=== PATIENT | male | born 1960 | race Caucasian/White ===

== ENCOUNTER → 2017-10-06 | Outpatient (CLI) | payer OTHER ==
--- NOTE | 2017-10-06 11:54 | XR ---
EXAMINATION TYPE: XR chest 2V DATE OF EXAM: 10/06/2017 COMPARISON: 10/02/2017 HISTORY: 57-year-old male history of bilateral rib fractures from crushing injury, pain, assess lung contusion TECHNIQUE: Frontal and lateral views FINDINGS: Known right-sided rib fractures were better demonstrated on CT. Very minimal hazy density in the right upper lobe is similar to 10/02/2017. No new consolidation. Hea rt is normal size. Mild elongation of the thoracic aorta. There is a small left pleural effusion. No pneumothorax. IMPRESSION: 1. Multiple known right-sided rib fractures better seen on CT. 2. Minimal hazy right upper lobe density, similar to 10/02/2017 could represent some minimal residual pulmonary contusion. No progressive lung contusion or pneumothorax. 3. Continued small left pleural effusion.
== END | disposition home or self-care (01) ==
LOC: RADXRMAIN 11:30
PROVIDERS: ATTEND Emergency Medicine
DX: S22.41XA Multiple fractures of ribs, right side, initial encounter for closed fracture (principal); J90 Pleural effusion, not elsewhere classified
CPT/HCPCS: 71020

== ENCOUNTER 2017-11-16 15:23 | Emergency (ER) | payer OTHER ==
[2017-11-16 15:35] VITALS: RESP 18
--- NOTE | 2017-11-16 16:51 | XR ---
EXAMINATION TYPE: XR ribs bilat w pa chest xray DATE OF EXAM: 11/16/2017 CLINICAL HISTORY: Crushing injury October 06 with persistent pain. TECHNIQUE: Single frontal view of the chest is obtained. A frontal and oblique images of bilateral ri bs are acquired. COMPARISON: Prior chest x-ray October 06, 2017. Prior CT chest abdomen pelvis September 28, 2017 FINDINGS: There is chronic emphysematous change without suspicious new focal air space opacity, pleu ral effusion, or pneumothorax seen. The cardiac silhouette size is within normal limits. The osseo us structures are intact. Dedicated images of bilateral ribs show no new acute displaced rib fractures. Nondisplaced fractures are seen better on prior CT. Some callus formation right mid lateral fractures is now present third t hrough seventh ribs. Callus formation anterior left upper rib fractures is noted. IMPRESSION: 1. No acute cardiopulmonary process. 2. Bilateral subacute nondisplaced rib fractures noted on prior CT with some interval callus formatio n. No new displacement identified.
--- NOTE | 2017-11-16 16:52 | XR ---
EXAMINATION TYPE: XR sternum DATE OF EXAM: 11/16/2017 COMPARISON: CT chest abdomen and pelvis September 28, 2017. HISTORY: Persistent sternal pain after crushing injury September 28 TECHNIQUE: A frontal and lateral images of the sternum are acquired. FINDINGS: No acute displaced sternal fracture is identified. Anterior left upper rib fractures noted seen better on prior CT. Overlying soft tissue is unremarkable. IMPRESSION: As above.
--- NOTE | 2017-11-16 17:10 | ED ---
Recheck HPI - General Chief Complaint: Recheck/Abnormal Lab/Rx Stated Complaint: Rib Pain Time Seen by Provider: 11/16/17 16:12 Source: patient, RN notes reviewed Mode of arrival: ambulatory Limitations: no limitations - History of Present Illness Initial Comments: This is a 57-year-old male who presents to the emergency department with chief complaint of rib pain. Patient states that he sustained multiple rib fractures on September 28. He states that over the last 4 days he's noticed a "deformity. " He states that he's noticed a bulge in the right side of his chest. He states that his pain has increased over the last 4 days. He states he has been taking Motrin at home for pain. Denies any chest pain or shortness of breath. Denies fever or chills, abdominal pain, nausea or vomiting, diarrhea or constipation. - Related Data Home Medications Medication Instructions Recorded Confirmed Multivit-Min/FA/Lycopen/Lutein 1 tab PO DAILY 11/16/17 11/16/17 [Centrum Silver Men Tablet] Previous Rx's Medication Instructions Recorded Diazepam [Valium] 5 mg PO TID PRN #20 tab 10/02/17 Allergies Allergy/AdvReac Type Severity Reaction Status Date / Time No Known Allergies Allergy Verified 11/16/17 16:24 Review of Systems ROS Statement: Those systems with pertinent positive or pertinent negative responses have been documented in the HPI. ROS Other: All systems not noted in ROS Statement are negative. Past Medical History Past Medical History: No Reported History Additional Past Medical History / Comment(s): Chronic sinusitis. History of Any Multi-Drug Resistant Organisms: None Reported Past Surgical History: Appendectomy Past Anesthesia/Blood Transfusion Reactions: No Reported Reaction Past Psychological History: No Psychological Hx Reported Smoking Status: Current every day smoker Past Alcohol Use History: None Reported Past Drug Use History: None Reported General Exam - General Exam Comments Initial Comments: General: Awake and alert, well-developed; in no apparent distress. HEENT: Head atraumatic, normocephalic. Pupils are equal, round and reactive to light. Extraocular movements intact. Neck: Supple. Normal ROM. Cardiovascular: Regular rate and rhythm. No murmurs, rubs or gallops. A prominence of right upper rib is palpated. This area is tender. Respiratory: Lungs clear to auscultation bilaterally. No wheezes, rales or rhonchi. Normal respiratory effort with no use of accessory muscles. Musculoskeletal: Normal ROM, no tenderness bilateral upper and lower extremities. Ambulating normally. Skin: [place], warm and dry without rashes or lesions. Neurological: Alert and oriented x3. CN II-XII grossly intact. Speech is fluent and answers are appropriate. No focal neuro deficits. Psychiatric: Normal mood and affect. No overt signs of depression or anxiety noted. Limitations: no limitations Course Vital Signs 11/16/17 15:31 Temperature 97.7 F Pulse Rate 104 H Respiratory 18 Rate Blood Pressure 146/82 O2 Sat by Pulse 98 Oximetry Medical Decision Making - Medical Decision Making This is a 57-year-old male with history of multiple rib fractures who presents to the emergency department with chief complaint of rib pain. Patient states that he's noticed a deformity of his right upper chest and increase in pain over the past 4 days. Chest x-ray, ribs and sternum were obtained. They revealed no acute fractures. Subacute fractures from previous have callus formation. Previous rib fractures are non-displaced and appear to be healing. Chest x-ray revealed no pneumothorax, pleural effusion or pneumonia. Patient is in no acute distress and will be discharged home. Recommended following up with his primary care provider. Patient is in agreement with plan and voices understanding. All questions were answered. - Radiology Data Radiology results: report reviewed Sternum x-ray findings: No acute displaced sternal fracture is identified. Anterior left upper rib fractures noted seen better on prior CT. Overlying soft tissues unremarkable. Impression: As above. X-ray bilateral ribs with PA chest findings: There is chronic emphysematous changes are suspicious no focal airspace opacity, pleural effusion or pneumothorax seen. The cardiac silhouette size is within normal limits. The osseous structures are intact. Dedicated images of bilateral ribs show no acute displaced rib fractures. Nondisplaced fractures are seen better on prior CT. Some callus formation right mid lateral fractures is now present third through seventh ribs. Callus formation anterior left upper rib fractures is noted. Impression: 1. No acute cardiopulmonary process. 2. Bilateral subacute nondisplaced rib fractures noted on prior CT was some interval callus formation. No displacement identified. Disposition Clinical Impression: History of rib fracture Disposition: HOME SELF-CARE Condition: Good Instructions: Rib Fracture (ED) Additional Instructions: Please follow up with primary care provider within 1-2 days. Return to emergency department if symptoms should worsen or any concerns arise. Referrals: Ayaz Ricardo MD [Primary Care Provider] - 1-2 days Time of Disposition: 17:16
[2017-11-16 17:21] VITALS: BP 118/80; PULSE 110; TEMP 98.2
== END 2017-11-16 17:20 | disposition home or self-care (01) ==
LOC: EC 15:23
DX: R07.81 Pleurodynia (principal); Z87.81 Personal history of (healed) traumatic fracture; R22.2 Localized swelling, mass and lump, trunk; F17.200 Nicotine dependence, unspecified, uncomplicated; Z79.899 Other long term (current) drug therapy
CPT/HCPCS: 71111; 71120; 99283

== ENCOUNTER → 2017-12-16 | Outpatient (CLI) | payer OTHER ==
[2017-12-16 07:55] LABS: Basophils % (A) 0 %; Eosinophils # (A) 0.1 k/uL (0-0.7); Eosinophils % (A) 1 %; HCT 47.6 % (39.0-53.0); HGB 14.9 gm/dL (13.0-17.5); Lymphocytes # (A) 2.4 k/uL (1.0-4.8); Lymphocytes % (A) 30 %; MCH 28.4 pg (25.0-35.0); MCHC 31.3 g/dL (31.0-37.0); MCV 90.7 fL (80.0-100.0); Mean Platelet Volume 8.8; Monocytes # (A) 0.5 k/uL (0-1.0); Monocytes % (A) 6 %; Neutrophils # (A) 4.9 k/uL (1.3-7.7); Neutrophils % (A) 61 %; Platelet Count 210 k/uL (150-450); RBC 5.25 m/uL (4.30-5.90); RDW 13.4 % (11.5-15.5); WBC 8.1 k/uL (3.8-10.6)
[2017-12-16 08:08] LABS: ALT 28 U/L (21-72); AST 16 U/L (17-59); Albumin 4.2 g/dL (3.5-5.0); Alkaline Phosphatase 107 U/L (38-126); Anion Gap 9 mmol/L; Blood Urea Nitrogen 18 mg/dL (9-20); Calcium 9.7 mg/dL (8.4-10.2); Carbon Dioxide 26 mmol/L (22-30); Chloride 106 mmol/L (98-107); Cholesterol 183 mg/dL (<200); Creatine Kinase 74 U/L (55-170); Glucose 99 mg/dL (74-99); HDL Cholesterol 45 mg/dL (40-60); LDL Cholesterol,Calculated 95 mg/dL (0-99); Potassium 4.4 mmol/L (3.5-5.1); Sodium 141 mmol/L (137-145); Total Bilirubin 0.4 mg/dL (0.2-1.3); Total Protein 6.9 g/dL (6.3-8.2); Triglycerides 217 mg/dL (<150); Uric Acid 6.3 mg/dL (3.5-8.5)
--- NOTE | 2017-12-16 08:34 | XR ---
EXAMINATION TYPE: XR chest 2V DATE OF EXAM: 12/16/2017 COMPARISON: Prior chest x-ray 11/16/[address] 09/28/2017 HISTORY: Pain and COPD TECHNIQUE: Frontal and lateral views of the chest are obtained. FINDINGS: There is no focal air space opacity, pleural effusion, or pneumothorax seen. The cardiac silhouette size is within normal limits. Prominent lung volumes compatible with underlying emphysema. Patient is rotated. The osseous structures are intact. IMPRESSION: No acute cardiopulmonary process.
[2017-12-16 10:24] LABS: C Reactive Protein 5.5 mg/L (<10.0)
[2017-12-16 10:47] LABS: Prostate Specific Antigen 3.23 ng/mL (0.00-4.00)
[2017-12-16 11:24] LABS: Hepatitis C IgG Antibody Non-Reactive (Non-Reactive)
[2017-12-16 12:51] LABS: Erythrocyte Sedimentation Rate 2 mm/hr (0-15)
[2017-12-16 16:13] LABS: Hemoglobin A1C 5.9 % (4.0-6.0)
== END | disposition home or self-care (01) ==
LOC: LABWHC1 06:36
PROVIDERS: ATTEND Internal Medicine
DX: S22.39XA Fracture of one rib, unspecified side, initial encounter for closed fracture (principal); J44.9 Chronic obstructive pulmonary disease, unspecified; F17.200 Nicotine dependence, unspecified, uncomplicated; D64.9 Anemia, unspecified; M10.9 Gout, unspecified; E78.5 Hyperlipidemia, unspecified; E03.9 Hypothyroidism, unspecified; E55.9 Vitamin D deficiency, unspecified
CPT/HCPCS: 36415; 71046; 80053; 80061; 82306; 82550; 83036; 84153; 84443; 84550; 85025; 85652; 86140; 86803

== ENCOUNTER → 2017-12-30 | Outpatient (CLI) | payer OTHER ==
[2018-01-03 23:55] LABS: Testosterone, Free, LC/MS/MS 71.2 pg/mL (46.0-224.0)
== END ==
LOC: LABWHC1 06:39
PROVIDERS: ATTEND Internal Medicine
DX: E29.1 Testicular hypofunction (principal); N52.9 Male erectile dysfunction, unspecified
CPT/HCPCS: 36415; 82040; 84146; 84270; 84403

== ENCOUNTER → 2018-01-06 | Outpatient (CLI) | payer OTHER | END | disposition home or self-care (01) | LOC: LABWHC1 12:17 | PROVIDERS: ATTEND Internal Medicine | DX: N40.0 Benign prostatic hyperplasia without lower urinary tract symptoms (principal); I45.10 Unspecified right bundle-branch block; J43.9 Emphysema, unspecified; E55.9 Vitamin D deficiency, unspecified; R79.89 Other specified abnormal findings of blood chemistry | CPT/HCPCS: 36415; 82272 ==

== ENCOUNTER 2018-03-07 18:57 | Emergency (ER) | payer SELFPAY ==
[2018-03-07 19:04] VITALS: BP 134/85; PULSE 100; RESP 20; TEMP 98.4
[2018-03-07] MEDS ORDERED: ORPHENADRINE 30 MG/ML 2 ML VIAL IM STA (20:33)
[2018-03-07] MEDS ORDERED: KETOROLAC 30 MG/ML 1 ML VIAL IM STA (20:33)
--- NOTE | 2018-03-07 20:39 | ED ---
Back Pain HPI - General Chief Complaint: Back Pain/Injury Stated Complaint: back and right leg pain Time Seen by Provider: 03/07/18 20:26 Source: patient, RN notes reviewed Limitations: no limitations - History of Present Illness Initial Comments: This is a 57-year-old male who presents to the emergency department with chief complaint of low back and right leg pain. Patient states that he feels like he may have twisted his right leg yesterday because since that time he has been experiencing right lower back pain with radiation down the right leg. He describes the pain as a burning sensation. Denies falls, injuries or trauma. Denies saddle paresthesias or loss of bladder or bowel function. Denies numbness or tingling. States that he has difficulty walking because of the burning. Denies recent fevers or chills, chest pain or shortness of breath, abdominal pain, nausea or vomiting. - Related Data Previous Rx's Medication Instructions Recorded Amoxicillin/Potassium Clav 1 tab PO Q12HR #14 tab 01/27/18 [Augmentin 875-125 Tablet] Ibuprofen 600 mg PO Q6HR #20 tablet 03/07/18 Allergies Allergy/AdvReac Type Severity Reaction Status Date / Time No Known Allergies Allergy Verified 03/07/18 19:04 Review of Systems ROS Statement: Those systems with pertinent positive or pertinent negative responses have been documented in the HPI. ROS Other: All systems not noted in ROS Statement are negative. Past Medical History Past Medical History: No Reported History Additional Past Medical History / Comment(s): Chronic sinusitis. History of Any Multi-Drug Resistant Organisms: None Reported Past Surgical History: Appendectomy Past Anesthesia/Blood Transfusion Reactions: No Reported Reaction Past Psychological History: No Psychological Hx Reported Smoking Status: Current every day smoker Past Alcohol Use History: None Reported Past Drug Use History: None Reported General Exam - General Exam Comments Initial Comments: General: Awake and alert, well-developed; in no apparent distress. HEENT: Head atraumatic, normocephalic. Pupils are equal, round and reactive to light. Extraocular movements intact. Oropharynx moist without erythema or exudate. Neck: Supple. Normal ROM. Cardiovascular: Regular rate and rhythm. No murmurs, rubs or gallops. Chest symmetrical. Respiratory: Lungs clear to auscultation bilaterally. No wheezes, rales or rhonchi. Normal respiratory effort with no use of accessory muscles. Musculoskeletal: Normal ROM, no tenderness bilateral upper and lower extremities. Ambulating normally. Skin: [place], warm and dry without rashes or lesions. Neurological: Alert and oriented x3. CN II-XII grossly intact. Speech is fluent and answers are appropriate. No focal neuro deficits. Psychiatric: Normal mood and affect. No overt signs of depression or anxiety noted. Limitations: no limitations Back exam: Present: normal inspection, full ROM, tenderness (Generalized right lumbar region. ). Absent: CVA tenderness (R), CVA tenderness (L), vertebral tenderness Course Vital Signs 03/07/18 19:02 Temperature 98.4 F Pulse Rate 100 Respiratory 20 Rate Blood Pressure 134/85 O2 Sat by Pulse 100 Oximetry Medical Decision Making - Medical Decision Making This is a 57-year-old male presents to the emergency department with chief complaint of low back and right leg pain. Patient's states that he has a burning sensation stemming from his right low back and radiating down his right leg. He denies any specific injuries, trauma or recent falls. Denies saddle paresthesias or loss of bladder or bowel function. On physical examination, right lumbar region is tender on palpation. No bony point vertebral tenderness. Patient is neurovascularly intact. Likely suffering from a lumbar radiculopathy. Will be given Toradol and Norflex while in the emergency department. Recommend NSAIDs on discharge. Patient's vital signs are stable and he is in no acute distress. He'll be discharged home at this time. All questions answered. Disposition Clinical Impression: Lumbar radiculopathy Disposition: HOME SELF-CARE Condition: Good Instructions: Lumbar Radiculopathy (ED), Lower Back Exercises (ED) Additional Instructions: Please take medications as prescribed. Please follow up with primary care provider within 1-2 days. Return to emergency department if symptoms should worsen or any concerns arise. Prescriptions: Ibuprofen 600 mg PO Q6HR #20 tablet Is patient prescribed a controlled substance at d/c from ED?: No Referrals: Ayaz Ricardo MD [Primary Care Provider] - 1-2 days Time of Disposition: 20:39
== END 2018-03-07 20:58 | disposition home or self-care (01) ==
LOC: EC 18:57
DX: M54.16 Radiculopathy, lumbar region (principal); F17.200 Nicotine dependence, unspecified, uncomplicated
CPT/HCPCS: 99283; 96372 ×2; J2360; J1885

== ENCOUNTER 2018-03-11 08:51 | Emergency (ER) | payer OTHER ==
[2018-03-11] MEDS ORDERED: Acetaminophen-Codeine 300-30mg TAB PO STA (09:28)
--- NOTE | 2018-03-11 09:30 | ED ---
Back Pain HPI - General Chief Complaint: Back Pain/Injury Stated Complaint: Back/leg pain Time Seen by Provider: 03/11/18 08:59 Source: patient, RN notes reviewed Limitations: no limitations - History of Present Illness Initial Comments: This a 57-year-old male presents emergency Department chief complaint of low back pain, right leg pain. Patient was seen here other day for similar complaints and states he did not have any improvement though he states that he cannot follow-up because he was constantly working. Patient states that he does have some discomfort when he twists and bends but states primarily has pain at reexamined his leg was some paresthesias. Patient denies any saddle anesthesias denies any bowel, bladder incontinence or retention. Patient states that he's had problems like this in the past in which she's been diagnosed with sciatica. Patient received ibuprofen upon discharge and received Toradol and Norflex in the emergency department. Patient's has NO KNOWN DRUG ALLERGIES. Patient denies any abdominal pain, dysuria. - Related Data Previous Rx's Medication Instructions Recorded Amoxicillin/Potassium Clav 1 tab PO Q12HR #14 tab 01/27/18 [Augmentin 875-125 Tablet] Ibuprofen 600 mg PO Q6HR #20 tablet 03/07/18 Acetaminophen-Codeine 300-30mg 1 tab PO Q4H PRN #14 tablet 03/11/18 [Tylenol #3] Cyclobenzaprine [Flexeril] 10 mg PO TID PRN #15 tab 03/11/18 predniSONE 50 mg PO DAILY #5 tab 03/11/18 Allergies Allergy/AdvReac Type Severity Reaction Status Date / Time No Known Allergies Allergy Verified 03/11/18 08:58 Review of Systems ROS Statement: Those systems with pertinent positive or pertinent negative responses have been documented in the HPI. ROS Other: All systems not noted in ROS Statement are negative. Past Medical History Past Medical History: No Reported History Additional Past Medical History / Comment(s): Chronic sinusitis, sciatica History of Any Multi-Drug Resistant Organisms: None Reported Past Surgical History: Appendectomy Past Anesthesia/Blood Transfusion Reactions: No Reported Reaction Past Psychological History: No Psychological Hx Reported Smoking Status: Current every day smoker Past Alcohol Use History: None Reported Past Drug Use History: None Reported General Exam Limitations: no limitations General appearance: alert, in no apparent distress Head exam: Present: atraumatic, normocephalic, normal inspection Eye exam: Present: normal appearance, PERRL, EOMI. Absent: scleral icterus, conjunctival injection, periorbital swelling Neck exam: Present: normal inspection, full ROM. Absent: tenderness, meningismus, lymphadenopathy Respiratory exam: Present: normal lung sounds bilaterally. Absent: respiratory distress, wheezes, rales, rhonchi, stridor Cardiovascular Exam: Present: regular rate, normal rhythm, normal heart sounds. Absent: systolic murmur, diastolic murmur, rubs, gallop, clicks GI/Abdominal exam: Present: soft, normal bowel sounds. Absent: distended, tenderness, guarding, rebound, rigid Extremities exam: Present: other (Right leg for range of motion neurovascular intact equal strength bilaterally lower extremities there is no swelling no discoloration or change and warmth) Back exam: Present: full ROM, tenderness (Mild tenderness right low back), paraspinal tenderness, other (Pain with right straight leg raise). Absent: vertebral tenderness Skin exam: Present: warm, dry, intact, normal color. Absent: rash Course Vital Signs 03/11/18 08:56 Temperature 98.5 F Pulse Rate 92 Respiratory 16 Rate Blood Pressure 154/79 O2 Sat by Pulse 96 Oximetry Medical Decision Making - Medical Decision Making 77-year-old male presents from for right leg pain, pain rating from his right hip region. Patient symptoms are consistent with lumbar radiculopathy or sciatica. Patient had x-rays as this was a second visit there is satisfactory alignment no obvious abnormality. Patient is neurovascularly intact he has no red flag symptoms. Patient will be discharged with steroids, pain medication and muscle relaxers. Return parameters discussed. Disposition Clinical Impression: Lumbar radiculopathy Disposition: HOME SELF-CARE Condition: Stable Instructions: Acute Low Back Pain (ED) Additional Instructions: Please return to the Emergency Department if symptoms worsen or any other concerns. Prescriptions: Acetaminophen-Codeine 300-30mg [Tylenol #3] 1 tab PO Q4H PRN #14 tablet PRN Reason: pain Cyclobenzaprine [Flexeril] 10 mg PO TID PRN #15 tab PRN Reason: Muscle Spasm predniSONE 50 mg PO DAILY #5 tab Is patient prescribed a controlled substance at d/c from ED?: Yes When asked, does pt state using other controlled substances?: No If prescribed controlled substance>3 days was MAPS reviewed?: Prescribed <3 Days If opioid is for acute pain is fill amount 7 days or less?: Yes If Rx opioid, was Start Talking consent form obtained?: Yes Referrals: Ayaz Ricardo MD [Primary Care Provider] - 1-2 days Time of Disposition: 10:40
--- NOTE | 2018-03-11 10:37 | XR ---
EXAMINATION TYPE: XR lumbosacral spine min 4V DATE OF EXAM: 03/11/2018 CLINICAL HISTORY: pain COMPARISON: NONE TECHNIQUE: Frontal, lateral, and oblique images of the lumbar spine are obtained. FINDINGS: There are 5 lumbar type vertebral bodies identified. The lumbar spine shows satisfactory alignment without evidence of acute fracture or dislocation. Vertebral body heights are within normal limits. Mild scattered degenerative disc space narrowing. The overlying soft tissue appears unrema rkable. IMPRESSION: No acute fracture or dislocation is seen in the lumbar spine.ICD 10 NO FRACTURE, INITIAL EVALUATION
[2018-03-11 10:50] VITALS: TEMP 98.2
[2018-03-11 10:58] VITALS: BP 137/85; PULSE 90; RESP 18
== END 2018-03-11 10:58 | disposition home or self-care (01) ==
LOC: EC 08:51
DX: M54.16 Radiculopathy, lumbar region (principal); F17.200 Nicotine dependence, unspecified, uncomplicated
CPT/HCPCS: 72110; 99283

== ENCOUNTER 2019-06-14 05:39 | Day surgery (SDC) | payer OTHER ==
[2019-06-08 11:09] VITALS: BMI 26.6
[2019-06-14] MEDS ORDERED: LACTATED RINGERS 1,000 ML IV SCH (05:44)
[2019-06-14] MEDS ORDERED: LIDOCAINE 1% 20 ML VIAL (10MG/ML) FOR IV START INTRADERMA PRN (05:44)
[2019-06-14] MEDS ORDERED: LACTATED RINGERS 1,000 ML IV ONE (07:08)
[2019-06-14 07:15] VITALS: TEMP 98
[2019-06-14] MEDS ORDERED: PROPOFOL 10 MG/ML 20 ML VIAL IV ONE (07:42)
--- NOTE | 2019-06-14 07:58 | P.GSHP ---
History of Present Illness H&P Date: 06/14/19 Chief Complaint: Screening colonoscopy This is a 58-year-old male who presents today for screening colonoscopy. Patient denies a significant GI complaints. He several colonoscopy before. Past Medical History Past Medical History: Cancer Additional Past Medical History / Comment(s): Chronic sinusitis, sciatica. 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 WITH METS 05/23/19 Medications and Allergies Home Medications Medication Instructions Recorded Confirmed Type No Known Home Medications 06/08/19 06/14/19 History Allergies Allergy/AdvReac Type Severity Reaction Status Date / Time No Known Allergies Allergy Verified 06/14/19 07:15 Surgical - Exam Vital Signs Temp Pulse Resp BP Pulse Ox 98 F 81 14 146/72 98 06/14/19 07:12 06/14/19 07:12 06/14/19 07:12 06/14/19 07:12 06/14/19 07:12 - General well developed, well nourished, no distress - Eyes PERRL - ENT normal pinna - Neck no masses - Respiratory normal expansion - Cardiovascular Rhythm: regular - Abdomen Abdomen: soft, non tender Assessment and Plan Assessment: We'll perform initial screening colonoscopy.
--- NOTE | 2019-06-14 08:11 | P.OP ---
Date of Procedure: 06/14/19 Preoperative Diagnosis: Screening colonoscopy Postoperative Diagnosis: Rectal polyp Procedure(s) Performed: Colonoscopy Anesthesia: MAC Surgeon: Rafael Mckoy Pathology: other (Rectal polyp) Condition: stable Disposition: PACU Description of Procedure: The patient's placed on the endoscopy table in the lateral position. He received IV sedation. Digital rectal exam was performed which revealed no abnormalities. Flexible colonoscope was then placed patient anus and passed rotator colon. The ileocecal valve visualized. The cecum, ascending and transverse colon appeared normal. The descending and sigmoid colon appeared normal. In the rectum there was a small's peduncular polyp and this is removed with snare. Scope was withdrawn for patient.
[2019-06-14 08:19] VITALS: PULSE 79; RESP 16
[2019-06-14 08:33] VITALS: BP 133/84
== END 2019-06-14 08:47 | disposition home or self-care (01) ==
LOC: ORWHC2ENDO 05:39
PROVIDERS: ATTEND Surgery
DX: Z12.11 Encounter for screening for malignant neoplasm of colon (principal); D12.8 Benign neoplasm of rectum; M54.30 Sciatica, unspecified side; Z85.828 Personal history of other malignant neoplasm of skin; J32.9 Chronic sinusitis, unspecified; Z80.1 Family history of malignant neoplasm of trachea, bronchus and lung; K21.9 Gastro-esophageal reflux disease without esophagitis; Z80.0 Family history of malignant neoplasm of digestive organs; Z79.899 Other long term (current) drug therapy
CPT/HCPCS: 88305; 45385; J2704

== ENCOUNTER → 2019-07-02 | Outpatient (CLI) | payer OTHER | END | disposition home or self-care (01) | LOC: LABWHC1 12:25 | PROVIDERS: ATTEND Family Medicine | DX: Z20.1 Contact with and (suspected) exposure to tuberculosis (principal) | CPT/HCPCS: 36415 ==

== ENCOUNTER 2021-12-15 01:47 | Emergency (ER) | payer OTHER ==
[2021-12-15 02:08] VITALS: BP 144/92; PULSE 104; RESP 18; TEMP 99.4
[2021-12-15] MEDS ORDERED: IBUPROFEN 600 MG TAB PO STA (02:16)
[2021-12-15] MEDS ORDERED: CYCLOBENZAPRINE 10 MG TAB PO STA (02:16)
--- NOTE | 2021-12-15 02:18 | ED ---
Back Pain HPI - General Stated Complaint: Back pain Time Seen by Provider: 12/15/21 02:06 Source: patient, RN notes reviewed - History of Present Illness Initial Comments: Patient states she was bending down to stretch about 2 days ago when he pulled a muscle in his lower back. Patient states is actually getting worse over the past 48 hours. Patient states after he sits down and rests or goes to sleep when he initially gets evidence back is very stiff and painful. He states actually feels better when he is up walking around after he loosens it out. No problems with bowel movements or urination. No symptoms of saddle anesthesia. Patient had no direct trauma. No fever. No abdominal pain. No headache, no fever or chills, no changes in vision or hearing, no sore throat or difficulty with speech, no neck pain, no chest pain or shortness of breath, no abdominal pain, no nausea or vomiting, no changes in urination or bowel movements, no numbness or tingling, no extremity pain, no skin rashes or lesions. MD Complaint: back pain - Related Data Previous Rx's Medication Instructions Recorded Acetaminophen [Tylenol] 500 mg PO Q4-6H PRN #24 tab 12/15/21 Cyclobenzaprine [Flexeril] 10 mg PO TID PRN #20 tab 12/15/21 Naproxen [Naprosyn] 375 mg PO Q12HR PRN #20 tablet 12/15/21 Allergies Allergy/AdvReac Type Severity Reaction Status Date / Time No Known Allergies Allergy Verified 12/15/21 02:07 Review of Systems ROS Statement: Those systems with pertinent positive or pertinent negative responses have been documented in the HPI. ROS Other: All systems not noted in ROS Statement are negative. Past Medical History Past Medical History: Cancer Additional Past Medical History / Comment(s): Chronic sinusitis, sciatica. 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 quit drinking 2006 -past "heavy use". Past Drug Use History: Marijuana Additional Drug Use History / Comment(s): SMOKED MARIJUANA ABOUT 1 MONTH AGO. INSTRUCTED TO REFRAIN FROM USE FOR AT LEAST 24 HOURS PRIOR TO PROCEDURE - Past Family History Brother(s) Family Medical History: Cancer Additional Family Medical History / Comment(s): IDENTICAL TWIN-PASSED FROM LUNG CANCER WITH METS 05/23/19 General Exam - General Exam Comments Initial Comments: Healthy-appearing 61-year-old male in no distress. Patient does not appear to be ill or toxic. General appearance: alert, in no apparent distress Head exam: Present: atraumatic, normocephalic, normal inspection Eye exam: Present: normal appearance, PERRL, EOMI. Absent: scleral icterus, co njunctival injection, periorbital swelling ENT exam: Present: normal exam, mucous membranes moist Neck exam: Present: normal inspection. Absent: tenderness, meningismus, lymphadenopathy Respiratory exam: Present: normal lung sounds bilaterally. Absent: respiratory distress, wheezes, rales, rhonchi, stridor Cardiovascular Exam: Present: regular rate, normal rhythm, normal heart sounds. Absent: systolic murmur, diastolic murmur, rubs, gallop, clicks GI/Abdominal exam: Present: soft, normal bowel sounds. Absent: distended, tenderness, guarding, rebound, rigid Extremities exam: Present: normal inspection, full ROM, normal capillary refill. Absent: tenderness, pedal edema, joint swelling, calf tenderness Back exam: Present: normal inspection Expanded Back exam: Present: normal rectal tone. Absent: saddle anesthesia Back exam: Negative Straight Leg Raising: Left, Right 1 - Patient has some tenderness to palpation in the lumbar paraspinal area Neurological exam: Present: alert, oriented X3, CN II-XII intact Psychiatric exam: Present: normal affect, normal mood Skin exam: Present: warm, dry, intact, normal color. Absent: rash Course Vital Signs 12/15/21 02:05 Temperature 99.4 F Pulse Rate 104 H Respiratory 18 Rate Blood Pressure 144/92 O2 Sat by Pulse 99 Oximetry Medical Decision Making - Medical Decision Making -There are no red flags for concerning back pathology. Specifically: -No history of cancer (aside from basal cell), this is not a mass effect, MRI not indicated. -No anticoagulation, this is not a bleed. -No fevers, no IVDU, this is not an infectious process. -No trauma, no bony pain, x-rays are not indicated. -With a normal neuro exam, and no urinary or bowel retention or incontinence, there is no clinical sign of motor defect or cauda equina - MRI is not indicated at this point. -No pulsating abdominal mass or risk factors for AAA. -Pain is relieved with rest, which is also less concerning. -I do not believe that x-rays or emergent MRI is indicated at this time. -We will treat symptomatically and discharge home with follow up instructions. -Stretching/strengthening exercise given to patient and they will be referred to physical therapy -Patient is instructed to use [id number] analgesics as directed on packaging for pain. Patient was told to return to the ER for any signs or symptoms worsen. Told to return immediately if any other problems arise. All questions answered. Treatment plan discussed. Patient in agreement Every effort has been made to ensure accuracy of this dictation. However, due to the limitations of electronic medical records and dictation devices, errors in charting still occur. Patient counseled smoking cessation - Radiology Data Radiology results: report reviewed, image reviewed Disposition Clinical Impression: Lumbar strain, Cigarette smoker Disposition: HOME SELF-CARE Condition: Stable Instructions (If sedation given, give patient instructions): Acute Low Back Pain (ED), How to Stop Smoking (ED) Additional Instructions: Follow-up with your regular physician as directed. Return to the ER immediately if any symptoms worsen, new symptoms arise, or any other problems develop. Apply heat 20 minutes on and off for times daily. Partake in light walking. Is patient prescribed a controlled substance at d/c from ED?: No Referrals: Gabo Cooper [STAFF PHYSICIAN] - 1-2 days Time of Disposition: 02:24
--- NOTE | 2021-12-15 02:47 | XR ---
EXAMINATION TYPE: XR lumbosacral spine min 4V DATE OF EXAM: 12/15/2021 COMPARISON: March 11, 2018 HISTORY: Back pain TECHNIQUE: 5 views FINDINGS: The lumbar vertebrae have normal alignment. Posterior elements are intact. There is no comp ression fracture. There is mild spurring of the endplates. Sacroiliac joints are intact. IMPRESSION: Negative lumbar spine exam. Mild spur formation. No fracture. No change.
== END 2021-12-15 03:18 | disposition home or self-care (01) ==
LOC: EC 01:47
DX: S39.012A Strain of muscle, fascia and tendon of lower back, initial encounter (principal); F17.210 Nicotine dependence, cigarettes, uncomplicated; F12.90 Cannabis use, unspecified, uncomplicated; Z85.828 Personal history of other malignant neoplasm of skin; Z90.49 Acquired absence of other specified parts of digestive tract; X58.XXXA Exposure to other specified factors, initial encounter
CPT/HCPCS: 72110; 99283